=== PATIENT | female | born 1990 | race Hispanic/Latino ===

== ENCOUNTER 2018-08-09 21:28 | Emergency (ER) | payer BC ==
[2018-08-09 21:37] VITALS: RESP 16
[2018-08-09] MEDS ORDERED: Lactated Ringer's 1,000 ML IV STA (22:01)
[2018-08-09 22:17] LABS: BASO % 0.4 % (0.0-2.0); EOS # 0.1 K/uL (0.0-0.7); EOS % 1.3 % (0.0-4.0); HEMOGLOBIN 13.2 g/dL (12.0-16.0); LYMPH # 2.9 K/uL (1.0-4.3); LYMPH % 43.8 % (20.0-40.0); MEAN CELL VOLUME 91.3 fl (81.0-99.0); MEAN CORPUSCULAR HEMOGLOBIN 30.8 pg (27.0-31.0); MEAN CORPUSCULAR HGB CONC 33.7 g/dL (33.0-37.0); MEAN PLATELET VOLUME 7.9 fl (7.2-11.7); MONO # 0.6 K/uL (0.0-0.8); MONO % 8.5 % (0.0-10.0); RBC 4.29 Mil/uL (3.80-5.20); RED CELL DISTRIBUTION WIDTH 13.2 % (11.5-14.5); WHITE BLOOD COUNT 6.6 K/uL (4.8-10.8)
[2018-08-09 22:29] LABS: ALB/GLOB RATIO 1.5 (1.0-2.1); ALBUMIN 4.6 g/dL (3.5-5.0); ALT/SGPT 20 U/L (9-52); AST/SGOT 27 U/L (14-36); BLOOD UREA NITROGEN 11 mg/dl (7-17); CALCIUM 9.4 mg/dL (8.4-10.2); GFR NON-AFRICAN AMERICAN > 60
--- NOTE | 2018-08-09 22:44 | ED PDOC ---
HPI: Chest Pain Time Seen by Provider: 08/09/18 21:40 Chief Complaint (Nursing): Chest Pain Chief Complaint (Provider): Chest pain History Per: Patient History/Exam Limitations: no limitations Onset/Duration Of Symptoms: Days (2x days) Current Symptoms Are (Timing): Still Present Severity: Moderate Quality: Tightness Additional Complaint(s): 28 year old female with no pertinent past medical history presents to the ED for an evaluation of palpitations that started yesterday. Patient states that since yesterday she has felt as though her heart is racing, and today she started experiencing shortness of breath with exertion. Patient reports also having multiple episodes of chest tightness. Patient reports having similar episodes 2x weeks ago, but they resolved spontaneously. Patient states that she has been under stress recently as she had lost her job. Patient reports drinking 2 or more cups of coffee per day, but denies taking stimulants, going on a new diet, using new medications (except for immunotherapy drops for allergies). Patient reports having some lightheadedness with chest pain. Patient denies having a cough, leg swelling, using control, recent immobilization or long airplane rides. PMD: [facility] in [place] Past Medical History Reviewed: Historical Data, Nursing Documentation, Vital Signs Vital Signs: Last Vital Signs Temp 98.2 F 08/09/18 21:29 Pulse 70 08/09/18 21:29 Resp 16 08/09/18 21:29 BP 159/88 H 08/09/18 21:29 Pulse Ox 98 08/09/18 21:29 VERONICA Report Viewed: Yes - Medical History PMH: Asthma - Surgical History Surgical History: No Surg Hx - Family History Family History: States: No Known Family Hx - Social History Current smoker - smoking cessation education provided: No Alcohol: None Drugs: Denies - Allergies Allergies/Adverse Reactions: Allergies Allergy/AdvReac Type Severity Reaction Status Date / Time No Known Allergies Allergy Verified 08/09/18 21:38 Review of Systems ROS Statement: Except As Marked, All Systems Reviewed And Found Negative Cardiovascular: Positive for: Chest Pain (chest tightness), Palpitations, Light Headedness Respiratory: Positive for: SOB with Exertion. Negative for: Cough Musculoskeletal: Negative for: Other (leg swelling) Physical Exam - Reviewed Nursing Documentation Reviewed: Yes Vital Signs Reviewed: Yes - Physical Exam Appears: Positive for: Well, Non-toxic, No Acute Distress Head Exam: Positive for: ATRAUMATIC, NORMOCEPHALIC Skin: Positive for: Warm, Dry Eye Exam: Positive for: EOMI, PERRL ENT: Negative for: Pharyngeal Erythema, Tonsillar Exudate Neck: Positive for: Painless ROM, Supple Cardiovascular/Chest: Positive for: Regular Rate, Rhythm. Negative for: Edema, Murmur Respiratory: Positive for: Normal Breath Sounds (lungs are clear bilaterally). Negative for: Rales, Rhonchi, Wheezing Gastrointestinal/Abdominal: Positive for: Soft. Negative for: Tenderness Back: Positive for: Normal Inspection. Negative for: Muscle Spasm Extremity: Positive for: Normal ROM. Negative for: Deformity Lymphatic: Negative for: Adenopathy Neurologic/Psych: Positive for: Alert, Oriented (3x), Mood/Affect (mildly anxious affect). Negative for: Motor/Sensory Deficits - Laboratory Results Result Diagrams: 08/09/18 22:10 08/09/18 22:10 Lab Results: Total Bilirubin 0.1 mg/dl (0.2-1.3) L 08/09/18 22:10 AST 27 U/L (14-36) 08/09/18 22:10 ALT 20 U/L (9-52) 08/09/18 22:10 Alkaline Phosphatase 39 U/L (38-126) 08/09/18 22:10 Total Protein 7.6 G/DL (6.3-8.2) 08/09/18 22:10 Albumin 4.6 g/dL (3.5-5.0) 08/09/18 22:10 Globulin 3.0 gm/dL (2.2-3.9) 08/09/18 22:10 Albumin/Globulin Ratio 1.5 (1.0-2.1) 08/09/18 22:10 - ECG ECG: Positive for: Interpreted By Al ECG Rhythm: Positive for: Normal QRS, Normal ST Segment, Sinus Rhythm O2 Sat by Pulse Oximetry: 98 (RA) Pulse Ox Interpretation: Normal - Radiology X-Ray: Interpreted by Al X-Ray Interpretation: No Acute Disease Medical Decision Making Medical Decision Makin:40 Initial impression: 28 year old female with palpitations. Differential diagnoses include, but are not limited to stress, electrolyte abnormality, dehydration, or hyperthyroidism. Less likely, but also considered: cardiac arrhythmia. Initial plan: * XRay chest 2 views * CMP * drug screen urinary * magnesium * phosphorous * TSH * troponin I * upreg * udip * CBC with diff * D dimer coag * lactated ringer's 1,000 ml IV 1,000 mls/hr * reevaluation Labs and CXR unremarkable No abnormalities on telemonitor while in ER. DW pt findings and plan of care. Rest, hydration, avoid stimulants, f/u [employer]. Scribe Attestation: Documented by Sasha Mosqueda, acting as a scribe for Yanna Corcoran MD. Provider Scribe Attestation: All medical record entries made by the Scribe were at my direction and personally dictated by me. I have reviewed the chart and agree that the record accurately reflects my personal performance of the history, physical exam, [facility] decision making, and the department course for this patient. I have also personally directed, reviewed, and agree with the discharge instructions and disposition Disposition - Clinical Impression Clinical Impression: Palpitations - Disposition [facility] Disposition: Routine/Home Disposition Time: 23:45 Condition: STABLE Additional Instructions: FOLLOW UP WITH [facility] TOMORROW FOR FURTHER EVALUATION Instructions: Palpitations (DC)
[2018-08-09 23:16] LABS: BARBITURATES, UR NEGATIVE (NEGATIVE); BENZODIAZEPINES, UR NEGATIVE (NEGATIVE); OPIATES, UR NEGATIVE (NEGATIVE); PHENCYCLIDINE, UR NEGATIVE (NEGATIVE)
[2018-08-09 23:46] VITALS: O2SAT 98
[2018-08-09 23:57] VITALS: BP 116/60; PULSE 81; TEMP 98.3
--- NOTE | 2018-08-10 10:09 | RAD ---
Date of service: 08/09/2018 HISTORY: Chest pain COMPARISON: No prior. TECHNIQUE: Chest PA and lateral FINDINGS: LINES AND TUBES: None. LUNG AND PLEURA: The lungs are well inflated and clear. No pleural effusion or pneumothorax. HEART AND MEDIASTINUM: The heart is not enlarged. No aortic atherosclerotic calcifications present. The hilar and mediastinal contours are within normal limits. SKELETAL STRUCTURES: The bony structures are within normal limits for the patient's age. VISUALIZED UPPER ABDOMEN: Normal. OTHER FINDINGS: None. IMPRESSION: No active pulmonary disease.
--- NOTE | 2018-08-10 16:46 | CARD ---
APPROVED REPORT Date of service: 08/09/2018 EKG Measurement Heart [id number] <Conclusion> Normal sinus rhythm Normal ECG
== END 2018-08-10 00:05 | disposition home or self-care (01) ==
LOC: H.ER 21:28
DX: R00.2 Palpitations (principal); J45.909 Unspecified asthma, uncomplicated; R07.89 Other chest pain
CPT/HCPCS: 71046; 80053; 81025; 83735; 84100; 84443; 84484; 85025; 85378; 93005; 96360; 99285; G0480; J7120